=== PATIENT | male | born 1950 ===

== ENCOUNTER 2017-08-26 15:23 | Emergency (ER) | payer OTHER ==
[2017-08-26] MEDS ORDERED: Albuterol 2.5 MG/3 ML NEB.SOL* (0.083%) INH ONE (16:25)
--- NOTE | 2017-08-26 16:34 | UC ---
Respiratory Complaint HPI - HPI Summary HPI Summary: Patient is here complaining of at least 7 weeks of respiratory symptoms. Has had cough, drainage, congestion, ear fullness and sinus pressure. Symptoms are not improving. He denies fever, chills, nausea. He has been using NyQuil with some relief of symptoms at nighttime. He feels short of breath even at rest but not wheezy. He is fatigued. Symptoms are worse when he takes a deep breath. Has had several episodes of posttussive emesis. - History of Current Complaint Chief Complaint: UCRespiratory Stated Complaint: COUGH,COLD,CONGESTION Time Seen by Provider: 08/26/17 15:59 Hx Obtained From: Patient Onset/Duration: Gradual Onset, Lasting Weeks, Still Present Timing: Constant Pain Intensity: 3 Pain Scale Used: 0-10 Numeric Character: Cough: Nonproductive Aggravating Factors: Deep Breaths Alleviating Factors: OTC Meds - NyQuil Associated Signs And Symptoms: Positive: Dyspnea, Pleuritic Chest Pain, URI, Nasal Congestion, Sinus Discomfort. Negative: Fever, Chills, Wheezing - Allergies/Home Medications Allergies/Adverse Reactions: Allergies Allergy/AdvReac Type Severity Reaction Status Date / Time opoids Allergy Nausea Uncoded 08/26/17 15:40 Home Medications: Home Medications ALPRAZolam TAB* [Xanax TAB*] 0.25 mg PO Q6H PRN 08/26/17 [History Confirmed ] Ondansetron TAB* [Zofran 4 MG Tab*] 4 mg PO Q6H PRN 08/26/17 [History Confirmed 08/26/17] SUMAtriptan SQ* [Imitrex SQ*] 6 mg SUBCUT SEE INSTRUCTIONS 08/26/17 [History Confirmed 08/26/17] SUMAtriptan TAB* [Imitrex TAB*] 100 mg PO SEE INSTRUCTIONS 08/26/17 [History Confirmed 08/26/17] Zolpidem Tartrate [Ambien Cr] 6.25 mg PO 08/26/17 [History] PMH/Surg Hx/FS Hx/Imm Hx GI/ History: Gastroesophageal Reflux Neurological History: Migraine - Surgical History Surgical History: Yes Surgery Procedure, Year, and Place: knee - Family History Known Family History: Positive: Hypertension - Social History Alcohol Use: Occasionally Substance Use Type: None Smoking Status (MU): Never Smoked Tobacco Review of Systems Constitutional: Fatigue ENT: Ear Ache, Nasal Discharge Respiratory: Shortness Of Breath, Cough Cardiovascular: Negative Gastrointestinal: Other - Posttussive emesis All Other Systems Reviewed And Are Negative: Yes Physical Exam Triage Information Reviewed: Yes Appearance: Well-Appearing, No Pain Distress, Well-Nourished Vital Signs: Initial Vital Signs Temp 98.4 F 08/26/17 15:34 Pulse 59 08/26/17 15:34 Resp 18 08/26/17 15:34 BP 132/77 08/26/17 15:34 Pulse Ox 97 08/26/17 15:34 Vital Signs Reviewed: Yes Eyes: Positive: Conjunctiva Clear ENT: Positive: Hearing grossly normal, Pharynx normal, TMs normal Neck: Positive: Supple, Nontender, No Lymphadenopathy Respiratory: Positive: Lungs clear, No respiratory distress, No accessory muscle use, Decreased breath sounds Cardiovascular Exam: Normal Abdomen Description: Positive: Soft Musculoskeletal: Positive: No Edema Neurological: Positive: Alert Psychological: Positive: Age Appropriate Behavior Skin: Negative: rashes UC Diagnostic Evaluation - Laboratory O2 Sat by Pulse Oximetry: 97 - Radiology Xray Interpretation: No Acute Changes - CXR Radiology Interpretation Completed By: Radiologist Re-Evaluation - Re-Evaluation First Eval Re-Evaluation Time: 17:00 - PT FEELS HE CAN TAKE A DEEPER BREATH AFTER NEB Change: Improved Respiratory Course/Dx - Differential Dx/Diagnosis Provider Diagnoses: ACUTE SINUSITIS/BRONCHITIS Discharge - Sign-Out/Discharge Documenting (check all that apply): Discharge - Discharge Plan Condition: Stable Disposition: HOME Prescriptions: Albuterol HFA INHALER* [Ventolin HFA Inhaler*] 2 puff INH Q4H PRN #1 mdi PRN Reason: Shortness Of Breath Amoxicillin/Clavulanate TAB* [Augmentin TAB 875*] 875 mg PO BID #20 tab Codeine Phosphate/Guaifenesin [Codeine-Guaifen 10-100 mg/5 ml] 5 - 10 ml PO Q6H PRN #150 ml MDD 40ML PRN Reason: Cough predniSONE TAB* [Deltasone TAB*] 40 mg PO DAILY #10 tab Patient Education Materials: Sinusitis (ED), Acute Bronchitis (ED) Referrals: Ayaz Young MD [Primary Care Provider] - If Needed Additional Instructions: CHEST XRAY UNREMARKABLE TODAY. YOU HAD SOME IMPROVEMENT AFTER ALBUTEROL NEBULIZER. YOUR SYMPTOMS MAY BE VIRALLY MEDIATED BUT GIVEN THE LENGTH OF TIME YOU HAVE BEEN ILL WE WILL COVER YOU WITH ANTIBIOTICS. IF YOU START THE MEDICINE BE SURE TO TAKE IT FOR THE FULL COURSE. REST, HYDRATE, OTC MEDS NEEDED. WILL ALSO TREAT WITH PREDNISONE AND ALBUTEROL INHALER TO HELP WITH AIRWAY INFLAMMATION AND COUGH MEDICINE. SEEK FOLLOW-UP WITH YOUR PCP IF YOU ARE NOT IMPROVING OVER THE NEXT 1-2 WEEKS. TAKING CODEINE COUGH MEDICINE AND XANAX TOGETHER CAN HAVE ADDITIVE SEDATING EFFECTS. USE WITH CAUTION. WOULD RECOMMEND NOT TAKING SIMULTANEOUSLY. [facility] Address: [facility] [address]anny [address], [place] [address] [facility] [address] [place] [address] [facility], [address] [place], [place] [address] - Billing Disposition and Condition Condition: STABLE Disposition: HOME
--- NOTE | 2017-08-26 16:58 | RAD ---
INDICATION: Cough x7 weeks COMPARISON: None TECHNIQUE: PA and lateral views of the chest were obtained. FINDINGS: The heart and mediastinum are normal in size and contour. The lungs are grossly clear. There is no evidence of large pleural effusion. Degenerative changes of the thoracic spine include loss of intervertebral disc height and anterior marginal osteophyte formation. There is no radiographic evidence of free air beneath the diaphragm IMPRESSION: No radiographic evidence of acute cardiopulmonary disease.
[2017-08-26 17:51] VITALS: BP 122/69
== END 2017-08-26 17:51 | disposition home or self-care (01) ==
LOC: UCEAST 15:23
DX: J01.90 Acute sinusitis, unspecified (principal); J20.9 Acute bronchitis, unspecified; K21.9 Gastro-esophageal reflux disease without esophagitis; G43.909 Migraine, unspecified, not intractable, without status migrainosus; Z88.5 Allergy status to narcotic agent
CPT/HCPCS: 71046; 99202; G0463